=== PATIENT | female | born 1965 | race Caucasian/White ===

== ENCOUNTER 2023-03-23 06:26 | Day surgery (SDC) | payer OTHER, SELFPAY ==
[2023-03-23] VITALS (8 sets, daily range): BP systolic 147–166; BP diastolic 87–104; BMI 26.7
[2023-03-23] MEDS: CYSVIEW KIT 100 MG INTRAVES (10:56)
[2023-03-23] MEDS: NORMOSOL-R 1000 IV (11:14)
[2023-03-23] MEDS: DILAUDID 0.25 MG IV ×2 (13:04→13:16)
[2023-03-23] MEDS: Pyridium 200 MG PO (13:53)
== END 2023-03-23 14:49 | disposition home or self-care (01) ==
LOC: SDS 06:26
PROVIDERS: ATTENDING PHYSICIAN Specialist
DX: N30.31 Trigonitis with hematuria (principal); N32.89 Other specified disorders of bladder
CPT/HCPCS: 52214; 52204; C9738; 88305; A9589; J9201